=== PATIENT | male | born 1955 | race Caucasian/White ===

== ENCOUNTER 2018-03-15 05:10 | Inpatient (IN) | payer OTHER ==
[2018-03-15] MEDS ORDERED: ONDANSETRON 4 MG INJ IV (06:00)
[2018-03-15] MEDS ORDERED: morphine 2 MG INJ IV (06:00)
[2018-03-15] MEDS ORDERED: NACL 0.9% 3 ML SYG IV (06:00)
[2018-03-15 06:31] LABS: ADD MAN DIFF? NO
[2018-03-15 06:38] LABS: BASOPHIL # 0.1 10^3/ul (0.0-0.1); BASOPHILS % 0.9 % (0.0-2.0); EOSINOPHILS # 0.3 10^3/ul (0.0-0.5); EOSINOPHILS % 4.6 % (0.0-7.0); HEMATOCRIT 40.8 % (42.0-52.0); HEMOGLOBIN 13.8 g/dl (14.0-18.0); LYMPHOCYTES # 1.3 10^3/ul (0.8-2.9); LYMPHOCYTES % 17.5 % (15.0-51.0); MEAN CORPUSCULAR HEMOGLOBIN 30.9 pg (29.0-33.0); MEAN CORPUSCULAR HGB CONC 33.8 g/dl (32.0-37.0); MEAN CORPUSCULAR VOLUME 91.3 fl (82.0-101.0); MEAN PLATELET VOLUME 11.2 fl (7.4-10.4); MONOCYTE # 0.9 10^3/ul (0.3-0.9); MONOCYTES % 11.6 % (0.0-11.0); NEUTROPHIL # 4.8 10^3/ul (1.6-7.5); NEUTROPHILS % 64.5 % (39.0-77.0); PLATELET COUNT 160 10^3/UL (140-415); RED BLOOD COUNT 4.47 10^6/ul (4.70-6.10); RED CELL DISTRIBUTION WIDTH 13.3 % (11.5-14.5)
[2018-03-15 06:38] LABS: WHITE BLOOD COUNT 7.4 10^3/ul (4.8-10.8)
[2018-03-15 07:08] LABS: LACTIC ACID 1.5 mmol/L (0.5-2.0)
[2018-03-15 07:11] LABS: ALANINE AMINOTRANSFERASE 23 IU/L (13-69); ALBUMIN 3.5 g/dl (3.3-4.9); ALBUMIN/GLOBULIN RATIO 1.45; ALKALINE PHOSPHATASE 49 IU/L (42-121); ANION GAP 8 (5-13); ASPARTATE AMINO TRANSFERASE 27 IU/L (15-46); BILIRUBIN,INDIRECT 0.2 mg/dl (0-1.1); BILIRUBIN,TOTAL 0.2 mg/dl (0.2-1.3); BLOOD UREA NITROGEN 14 mg/dl (7-20); CALCIUM 8.3 mg/dl (8.4-10.2); CARBON DIOXIDE 27 mmol/L (21-31); CHLORIDE 103 mmol/L (97-110); CHOL/HDL RATIO 6.8 RATIO; CHOLESTEROL 171 mg/dl (100-200); CREATININE 0.57 mg/dl (0.61-1.24); Estimated GFR > 60 mL/min (>60); GLUCOSE 214 mg/dl (70-220); HDL CHOLESTEROL 25 mg/dl (30-78); MAGNESIUM 2.1 mg/dl (1.7-2.5); POTASSIUM 4.1 mmol/L (3.5-5.1); SODIUM 138 mmol/L (135-144); TOTAL PROTEIN 5.9 g/dl (6.1-8.1)
[2018-03-15 07:12] LABS: HEMOGLOBIN A1C 8.3 % (0-5.9)
[2018-03-15] MEDS ORDERED: VANCOMYCIN IV PER PHARMACY XX (07:30)
[2018-03-15 08:00] LABS: TRIGLYCERIDES 791 mg/dl (0-149)
[2018-03-15] MEDS ORDERED: GLUCAGON 1 MG INJ IM (08:00)
[2018-03-15] MEDS ORDERED: GLUCOSE GEL 15 GRAM TUBE BUCCAL (08:00)
[2018-03-15] MEDS ORDERED: DEXTROSE 50% 50 ML SYRINGE IV ×2 (08:00)
[2018-03-15] MEDS ORDERED: GLUCOSE GEL 15 GRAM TUBE PO ×2 (08:00)
[2018-03-15] MEDS: clonAZEPAM 0.5 MG TAB PO ×2 (08:30→20:08)
[2018-03-15] MEDS: GEMFIBROZIL 600 MG TAB PO ×2 (08:30→17:13)
[2018-03-15] MEDS: INSULIN ASPART [NOVOLOG] 3 ML PEN SC ×4 (08:31→20:46)
[2018-03-15] MEDS: METOPROLOL 50 MG TAB PO ×2 (08:32→20:34)
[2018-03-15] MEDS: LISINOPRIL 5 MG TAB PO (08:32)
[2018-03-15] MEDS: PIPER-TAZO 3.375 GM IV (PMX) 100 ML IVPB ×3 (08:32→17:13)
[2018-03-15] MEDS: VANCOMYCIN 2 GM in SOD CHLORIDE 0.9% 500 ML IVPB (09:37)
[2018-03-15 12:05] LABS: LACTIC ACID 1.6 mmol/L (0.5-2.0)
[2018-03-15] MEDS: SODIUM HYPOCHLORITE (1/40) 1 APPLIC BTL IRR (17:12)
[2018-03-15] MEDS: VANCOMYCIN 1 GM 250 ML IVPB (20:34)
[2018-03-16] MEDS: PIPER-TAZO 3.375 GM IV (PMX) 100 ML IVPB ×5 (00:46→23:55)
[2018-03-16] MEDS: ACCU-CHEK XX (02:00)
[2018-03-16 05:17] LABS: ADD MAN DIFF? NO
[2018-03-16 05:29] LABS: BASOPHIL # 0.1 10^3/ul (0.0-0.1); BASOPHILS % 0.9 % (0.0-2.0); EOSINOPHILS # 0.3 10^3/ul (0.0-0.5); EOSINOPHILS % 4.4 % (0.0-7.0); HEMATOCRIT 40.9 % (42.0-52.0); HEMOGLOBIN 13.6 g/dl (14.0-18.0); LYMPHOCYTES # 1.5 10^3/ul (0.8-2.9); LYMPHOCYTES % 21.4 % (15.0-51.0); MEAN CORPUSCULAR HEMOGLOBIN 30.4 pg (29.0-33.0); MEAN CORPUSCULAR HGB CONC 33.3 g/dl (32.0-37.0); MEAN CORPUSCULAR VOLUME 91.5 fl (82.0-101.0); MEAN PLATELET VOLUME 11.4 fl (7.4-10.4); MONOCYTE # 0.8 10^3/ul (0.3-0.9); MONOCYTES % 11.7 % (0.0-11.0); NEUTROPHIL # 4.3 10^3/ul (1.6-7.5); NEUTROPHILS % 60.9 % (39.0-77.0); PLATELET COUNT 142 10^3/UL (140-415); RED BLOOD COUNT 4.47 10^6/ul (4.70-6.10); RED CELL DISTRIBUTION WIDTH 13.3 % (11.5-14.5)
[2018-03-16 05:46] LABS: ANION GAP 6 (5-13); BLOOD UREA NITROGEN 13 mg/dl (7-20); CALCIUM 8.9 mg/dl (8.4-10.2); CARBON DIOXIDE 27 mmol/L (21-31); CHLORIDE 106 mmol/L (97-110); CREATININE 0.68 mg/dl (0.61-1.24); Estimated GFR > 60 mL/min (>60); GLUCOSE 262 mg/dl (70-220); POTASSIUM 4.6 mmol/L (3.5-5.1); SODIUM 139 mmol/L (135-144)
[2018-03-16 05:49] LABS: MAGNESIUM 2.2 mg/dl (1.7-2.5)
[2018-03-16 05:49] LABS: PHOSPHORUS 3.8 mg/dl (2.5-4.9)
[2018-03-16 05:50] LABS: C-REACTIVE PROTEIN < 0.5 mg/dl (0.0-0.9)
[2018-03-16 06:44] LABS: ERYTHROCYTE SEDIMENTATION RATE 6 mm/Hr (0-20)
[2018-03-16] MEDS: GEMFIBROZIL 600 MG TAB PO ×2 (06:49→17:33)
[2018-03-16] MEDS: VANCOMYCIN 1 GM 250 ML IVPB ×2 (08:14→20:42)
[2018-03-16] MEDS: INSULIN ASPART [NOVOLOG] 3 ML PEN SC ×5 (08:17→20:44)
[2018-03-16] MEDS: ENOXAPARIN 40 MG/0.4 ML SYG SC (08:18)
[2018-03-16] MEDS: METOPROLOL 50 MG TAB PO ×2 (08:20→20:42)
[2018-03-16] MEDS: LISINOPRIL 5 MG TAB PO (08:20)
[2018-03-16] MEDS: SODIUM HYPOCHLORITE (1/40) 1 APPLIC BTL IRR ×2 (08:20→20:42)
[2018-03-16] MEDS: clonAZEPAM 0.5 MG TAB PO ×2 (08:30→17:33)
[2018-03-16] MEDS ORDERED: INSULIN ASPART [NOVOLOG] 3 ML PEN SC (17:35)
[2018-03-16] MEDS ORDERED: INSULIN GLARGINE [LANTus] (100 UNITS/ML) SYG SC (20:00)
[2018-03-16 20:29] LABS: VANCOMYCIN,TROUGH 6.9 ug/ml (10.0-20.0)
[2018-03-16] MEDS: INSULIN GLARGINE [LANTus] (100 UNITS/ML) SYG SC (20:44)
[2018-03-17] MEDS: ACCU-CHEK XX (01:40)
[2018-03-17] MEDS: ACETAMINOPHEN 325 MG TAB PO (01:45)
[2018-03-17] MEDS: VANCOMYCIN 1 GM 250 ML IVPB ×2 (04:09→12:21)
[2018-03-17 05:06] LABS: ADD MAN DIFF? NO
[2018-03-17 05:09] LABS: BASOPHIL # 0.1 10^3/ul (0.0-0.1); BASOPHILS % 0.8 % (0.0-2.0); EOSINOPHILS # 0.3 10^3/ul (0.0-0.5); HEMATOCRIT 40.5 % (42.0-52.0); HEMOGLOBIN 13.5 g/dl (14.0-18.0); LYMPHOCYTES # 1.8 10^3/ul (0.8-2.9); LYMPHOCYTES % 23.8 % (15.0-51.0); MEAN CORPUSCULAR HEMOGLOBIN 30.1 pg (29.0-33.0); MEAN CORPUSCULAR HGB CONC 33.3 g/dl (32.0-37.0); MEAN CORPUSCULAR VOLUME 90.4 fl (82.0-101.0); MEAN PLATELET VOLUME 11.1 fl (7.4-10.4); MONOCYTE # 0.9 10^3/ul (0.3-0.9); MONOCYTES % 11.6 % (0.0-11.0); NEUTROPHIL # 4.4 10^3/ul (1.6-7.5); NEUTROPHILS % 59.3 % (39.0-77.0); PLATELET COUNT 139 10^3/UL (140-415); POSITIVE DIFF @See below; RED BLOOD COUNT 4.48 10^6/ul (4.70-6.10); RED CELL DISTRIBUTION WIDTH 13.2 % (11.5-14.5)
[2018-03-17 05:09] LABS: WHITE BLOOD COUNT 7.5 10^3/ul (4.8-10.8)
[2018-03-17 05:27] LABS: ANION GAP 8 (5-13); BLOOD UREA NITROGEN 13 mg/dl (7-20); CARBON DIOXIDE 28 mmol/L (21-31); CHLORIDE 106 mmol/L (97-110); CREATININE 0.67 mg/dl (0.61-1.24); Estimated GFR > 60 mL/min (>60); GLUCOSE 199 mg/dl (70-220); POTASSIUM 4.6 mmol/L (3.5-5.1); SODIUM 142 mmol/L (135-144)
[2018-03-17 05:27] LABS: PHOSPHORUS 4.3 mg/dl (2.5-4.9)
[2018-03-17] MEDS: PIPER-TAZO 3.375 GM IV (PMX) 100 ML IVPB ×2 (06:37→11:37)
[2018-03-17] MEDS: INSULIN ASPART [NOVOLOG] 3 ML PEN SC ×4 (08:12→12:13)
[2018-03-17] MEDS: ENOXAPARIN 40 MG/0.4 ML SYG SC (08:15)
[2018-03-17] MEDS: LISINOPRIL 5 MG TAB PO (08:17)
[2018-03-17] MEDS: GEMFIBROZIL 600 MG TAB PO (08:17)
[2018-03-17] MEDS: clonAZEPAM 0.5 MG TAB PO (08:17)
[2018-03-17] MEDS: METOPROLOL 50 MG TAB PO (08:17)
[2018-03-17] MEDS: SODIUM HYPOCHLORITE (1/40) 1 APPLIC BTL IRR (08:23)
[2018-03-17] MEDS ORDERED: BISACODYL (EC) 5 MG TAB PO (10:00)
[2018-03-17] MEDS: POLYETHYLENE GLYCOL 17 GM PACKET PO (10:00)
== END 2018-03-17 15:25 | disposition home or self-care (01) | DRG 623 ==
LOC: PP2 05:10
PROC: 0JBQ0ZZ Excision of Right Foot Subcutaneous Tissue and Fascia, Open Approach (ICD-10-PCS; principal; 2018-03-15)
DX: E11.621 Type 2 diabetes mellitus with foot ulcer (principal); L03.115 Cellulitis of right lower limb; E78.5 Hyperlipidemia, unspecified; I10 Essential (primary) hypertension; F41.9 Anxiety disorder, unspecified; Z59.0 Homelessness; L97.519 Non-pressure chronic ulcer of other part of right foot with unspecified severity; E11.42 Type 2 diabetes mellitus with diabetic polyneuropathy; B35.1 Tinea unguium; B35.3 Tinea pedis; E66.9 Obesity, unspecified; Z68.31 Body mass index [BMI] 31.0-31.9, adult
CPT/HCPCS: 73630; 80048; 80053; 80061; 80202; 82306; 82652; 82962; 83036; 83605; 83735; 84100; 84443; 85025; 85651; 86140; 87070; 87081